=== PATIENT | female | born 1955 | race African-American/Black ===

== ENCOUNTER 2018-12-21 08:19 | Inpatient (IN) | payer MEDICAID ==
[2018-12-21] VITALS (36 sets, daily range): BP systolic 101–193; BP diastolic 47–145
[~2018-12-21] VITALS: Ht 172.7 cm; Wt 84.4 kg
[2018-12-21] MEDS ORDERED: DILTIAZEM HCL 5MG/ML 5ML VIAL IV ONE (09:00)
[2018-12-21] MEDS ORDERED: DILTIAZEM HCL 125 MG in DEXT 5% WATER 100 ML IV ONE (09:00)
[2018-12-21 09:01] LABS: BASOPHILS % 1.2 % (0.0-2.0); EOSINOPHILS % 0.5 % (0.0-5.0); HEMATOCRIT. 38.6 % (36.0-48.0); HEMOGLOBIN. 12.8 g/dL (12.0-16.0); LYMPHOCYTES % 15.2 % (20.0-50.0); MEAN CORPUSCULAR HEMOGLOBIN 30.3 pg (28.0-32.0); MEAN CORPUSCULAR VOLUME 91.4 fL (81.0-99.0); MEAN PLATELET VOLUME 10.7 fl (7.4-10.4); MONOCYTES % 11.1 % (2.0-8.0); PLATELET 195 x1000/uL (130-400); RED BLOOD CELL COUNT 4.22 mill/uL (4.2-5.4); RED CELL DISTRIBUTION WIDTH 14.3 % (11.6-14.6)
[2018-12-21 09:07] LABS: CHLORIDE 98 mEq/L (98-107)
[2018-12-21 09:08] LABS: INR 1.3
[2018-12-21] MEDS ORDERED: ONDANSETRON HCL 4MG/2ML INJ IV PRN (09:45)
[2018-12-21] MEDS ORDERED: ACETAMINOPHEN 325MG TABLET PO PRN (09:45)
[2018-12-21] MEDS ORDERED: DIGOXIN 500MCG/2ML AMP IV NR (10:00)
[2018-12-21] MEDS ORDERED: ONDANSETRON HCL 4MG/2ML INJ IV NR (10:00)
[2018-12-21] MEDS ORDERED: MORPHINE SULFATE 4 MG/ML CPJ (NOT FOR IM USE) IV NR (10:00)
[2018-12-21 10:16] LABS: CLARITY URINE CLEAR (CLEAR); COLOR URINE YELLOW (YELLOW); KETONES URINE NEGATIVE (NEGATIVE); LEUKOCYTE ESTERASE URINE NEGATIVE (NEGATIVE); NITRITE URINE NEGATIVE (NEGATIVE); OCCULT BLOOD URINE NEGATIVE (NEGATIVE); PROTEIN URINE NEGATIVE (NEGATIVE); SPECIFIC GRAVITY URINE 1.014 (1.005-1.030)
[2018-12-21 11:39] LABS: *AMPHETAMINES SCREEN URINE NEGATIVE (NEGATIVE); *BENZODIAZEPINES SCREEN URINE NEGATIVE (NEGATIVE); *COCAINE SCREEN URINE PRESUMTIVE POSITIVE (NEGATIVE); METHADONE URINE SCREEN NEGATIVE (NEGATIVE); OPIATES URINE SCREEN NEGATIVE (NEGATIVE)
[2018-12-21 11:40] LABS: CANNABINOID URINE SCREEN NEGATIVE (NEGATIVE); PHENCYCLIDINE URINE SCREEN NEGATIVE (NEGATIVE)
[2018-12-21 11:42] LABS: *BARBITURATES SCREEN URINE NEGATIVE (NEGATIVE)
[2018-12-21 11:51] LABS: HEPATITIS B SURFACE ANTIGEN NEGATIVE
[2018-12-21] MEDS ORDERED: DILTIAZEM HCL 60MG TABLET PO NR (12:00)
[2018-12-21] MEDS ORDERED: METOPROLOL TARTRATE 5MG/5ML VIAL IV NR (12:00)
[2018-12-21] MEDS ORDERED: ENOXAPARIN 80MG/0.8ML SYR SUBCUT SCH (12:00)
[2018-12-21 12:21] LABS: HEPATITIS A AB IGM NEGATIVE (NEGATIVE)
[2018-12-21] MEDS ORDERED: VANCOMYCIN 1500MG in DEXTROSE 5% WATER 250ML IV NR (14:00)
[2018-12-21] MEDS: CEFTRIAXONE 1 G PREMIX 50 ML IV SCH (14:58)
[2018-12-21] MEDS ORDERED: CARV3.1242 PO (16:50)
[2018-12-21] MEDS ORDERED: FURO-152 PO (16:50)
[2018-12-21] MEDS ORDERED: RIVA10TA PO (16:50)
[2018-12-21] MEDS: DIGOXIN 125MCG TABLET PO SCH (17:38)
[2018-12-21] MEDS: FUROSEMIDE 40MG/4ML VIAL IVP SCH (17:38)
[2018-12-21] MEDS: DILTIAZEM HCL 125 MG in DEXT 5% WATER 100 ML IV PRN (17:39)
[2018-12-21] MEDS ORDERED: CARVEDILOL 3.125 MG TABLET PO SCH (21:00)
[2018-12-21] MEDS ORDERED: HYDROCODONE/ACETAMINOPHEN 5/325MG TABLET PO PRN (23:00)
[2018-12-21] MEDS: HYDROCODONE/ACETAMINOPHEN 5/325MG TABLET PO PRN (23:35)
[2018-12-22] VITALS (47 sets, daily range): BP systolic 77–137; BP diastolic 25–86
[2018-12-22 06:08] LABS: BASOPHILS % 0.2 % (0.0-2.0); EOSINOPHILS % 0.5 % (0.0-5.0); HEMOGLOBIN. 10.7 g/dL (12.0-16.0); LYMPHOCYTES % 10.3 % (20.0-50.0); MEAN CORPUSCULAR HEMOGLOBIN 29.8 pg (28.0-32.0); MEAN CORPUSCULAR VOLUME 91.4 fL (81.0-99.0); MEAN PLATELET VOLUME 10.5 fl (7.4-10.4); MONOCYTES % 9.7 % (2.0-8.0); NEUTROPHILS % 79.3 % (40.0-76.0); PLATELET 143 x1000/uL (130-400); RED BLOOD CELL COUNT 3.61 mill/uL (4.2-5.4); RED CELL DISTRIBUTION WIDTH 14.1 % (11.6-14.6)
[2018-12-22 06:15] LABS: PHOSPHORUS 4.3 mg/dL (2.5-4.9)
[2018-12-22] MEDS: ENOXAPARIN 80MG/0.8ML SYR SUBCUT SCH (08:24)
[2018-12-22] MEDS: FUROSEMIDE 40MG/4ML VIAL IVP SCH ×2 (08:24→17:56)
[2018-12-22] MEDS ORDERED: HYDROCODONE/ACETAMINOPHEN 5/325MG TABLET PO PRN (10:45)
[2018-12-22] MEDS ORDERED: SORBITOL 70% SOLN 30ML PO NR (11:45)
[2018-12-22] MEDS: DILTIAZEM HCL 125 MG in DEXT 5% WATER 100 ML IV PRN (11:50)
[2018-12-22] MEDS: CEFTRIAXONE 1 G PREMIX 50 ML IV SCH (11:51)
[2018-12-22] MEDS: SPIRONOLACTONE 25MG TABLET PO SCH (11:52)
[2018-12-22] MEDS: DILTIAZEM HCL 30MG TABLET PO SCH ×2 (11:53→22:29)
[2018-12-22] MEDS ORDERED: VANCOMYCIN 1 G PREMIX 200 ML IV SCH (12:30)
[2018-12-22] MEDS: HYDROCODONE/ACETAMINOPHEN 5/325MG TABLET PO PRN (12:43)
[2018-12-22] MEDS: DIGOXIN 125MCG TABLET PO SCH (17:56)
[2018-12-23] VITALS (15 sets, daily range): BP systolic 82–122; BP diastolic 52–81
[2018-12-23] MEDS: DILTIAZEM HCL 30MG TABLET PO SCH (05:24)
[2018-12-23] MEDS: FUROSEMIDE 40MG/4ML VIAL IVP SCH ×2 (06:42→17:54)
[2018-12-23 07:00] LABS: BASOPHILS % 0.2 % (0.0-2.0); EOSINOPHILS % 1.7 % (0.0-5.0); HEMATOCRIT. 36.7 % (36.0-48.0); MEAN CORPUSCULAR VOLUME 91.8 fL (81.0-99.0); MEAN PLATELET VOLUME 10.6 fl (7.4-10.4); MONOCYTES % 9.6 % (2.0-8.0); NEUTROPHILS % 78.5 % (40.0-76.0); PLATELET 173 x1000/uL (130-400); RED BLOOD CELL COUNT 3.99 mill/uL (4.2-5.4); RED CELL DISTRIBUTION WIDTH 14.4 % (11.6-14.6)
[2018-12-23 07:28] LABS: PHOSPHORUS 3.9 mg/dL (2.5-4.9)
[2018-12-23] MEDS: SPIRONOLACTONE 25MG TABLET PO SCH (08:51)
[2018-12-23] MEDS: ENOXAPARIN 80MG/0.8ML SYR SUBCUT SCH (08:52)
[2018-12-23] MEDS ORDERED: VANCOMYCIN 750 MG PREMIX 150 ML IV SCH (10:00)
[2018-12-23] MEDS: DILTIAZEM HCL 60MG TABLET PO SCH ×2 (11:23→17:56)
[2018-12-23] MEDS: CEFTRIAXONE 1 G PREMIX 50 ML IV SCH (15:11)
[2018-12-23] MEDS: DIGOXIN 125MCG TABLET PO SCH (17:54)
[2018-12-23] MEDS: LISINOPRIL 5MG TABLET PO SCH (20:39)
[2018-12-24] VITALS (12 sets, daily range): BP systolic 84–124; BP diastolic 55–79
[2018-12-24] MEDS: DILTIAZEM HCL 60MG TABLET PO SCH ×3 (01:11→12:21)
[2018-12-24] MEDS: FUROSEMIDE 40MG/4ML VIAL IVP SCH (06:03)
[2018-12-24 06:47] LABS: BASOPHILS % 0.6 % (0.0-2.0); HEMATOCRIT. 34.2 % (36.0-48.0); HEMOGLOBIN. 11.2 g/dL (12.0-16.0); LYMPHOCYTES % 16.3 % (20.0-50.0); MEAN CORPUSCULAR VOLUME 91.9 fL (81.0-99.0); MEAN PLATELET VOLUME 9.6 fl (7.4-10.4); MONOCYTES % 10.2 % (2.0-8.0); NEUTROPHILS % 68.9 % (40.0-76.0); PLATELET 174 x1000/uL (130-400); RED BLOOD CELL COUNT 3.72 mill/uL (4.2-5.4); RED CELL DISTRIBUTION WIDTH 14.4 % (11.6-14.6)
[2018-12-24 06:55] LABS: PHOSPHORUS 2.9 mg/dL (2.5-4.9)
[2018-12-24 07:13] LABS: DIGOXIN 0.5 ng/mL (0.9-2.0)
[2018-12-24] MEDS: ENOXAPARIN 80MG/0.8ML SYR SUBCUT SCH (09:13)
[2018-12-24] MEDS: LISINOPRIL 5MG TABLET PO SCH (09:14)
[2018-12-24] MEDS: SPIRONOLACTONE 25MG TABLET PO SCH (09:14)
[2018-12-24] MEDS: HYDROCODONE/ACETAMINOPHEN 5/325MG TABLET PO PRN (12:20)
[2018-12-24] MEDS ORDERED: VANCOMYCIN 1 G PREMIX 200 ML IV SCH (12:30)
[2018-12-24] MEDS: CEFTRIAXONE 1 G PREMIX 50 ML IV SCH (14:34)
[2018-12-24] MEDS ORDERED: ENOXAPARIN 80MG/0.8ML SYR SUBCUT SCH (21:00)
== END 2018-12-24 18:15 | disposition home or self-care (01) | DRG 816 ==
LOC: ER 08:40 → ENRESERV 10:32 → CVICU 11:30 → 3WST 12-22 23:10
PROVIDERS: ADMIT Internal Medicine; ATTEND Internal Medicine
DX: T40.5X1A Poisoning by cocaine, accidental (unintentional), initial encounter (principal); J96.90 Respiratory failure, unspecified, unspecified whether with hypoxia or hypercapnia; N17.0 Acute kidney failure with tubular necrosis; I47.2 Ventricular tachycardia; I50.43 Acute on chronic combined systolic (congestive) and diastolic (congestive) heart failure; L03.115 Cellulitis of right lower limb; I31.3 Pericardial effusion (noninflammatory); Y92.89 Other specified places as the place of occurrence of the external cause; I11.0 Hypertensive heart disease with heart failure; N13.1 Hydronephrosis with ureteral stricture, not elsewhere classified; I42.9 Cardiomyopathy, unspecified; I48.91 Unspecified atrial fibrillation; R60.1 Generalized edema; R74.0 Nonspecific elevation of levels of transaminase and lactic acid dehydrogenase [LDH]; F14.129 Cocaine abuse with intoxication, unspecified; I99.8 Other disorder of circulatory system; I25.10 Atherosclerotic heart disease of native coronary artery without angina pectoris; I34.0 Nonrheumatic mitral (valve) insufficiency; J44.9 Chronic obstructive pulmonary disease, unspecified; Z87.891 Personal history of nicotine dependence; Z71.51 Drug abuse counseling and surveillance of drug abuser; Z59.0 Homelessness; Z79.01 Long term (current) use of anticoagulants; Z82.49 Family history of ischemic heart disease and other diseases of the circulatory system
CPT/HCPCS: 36415; 71045; 74176; 76770; 80048; 80061; 80076; 80162; 80202; 80305; 82550; 83735; 83880; 84100; 84439; 84443; 84484; 86705; 86709; 86803; 87340; 93005; 93306; 93923; 93970; 96374; 96375; 99291; J0696; J1160; J1650; J1940; J2270; J2405; J3370; J3490; J7050; J7060; A4315

== ENCOUNTER 2019-01-04 11:27 | Inpatient (IN) | payer MEDICAID ==
[~2019-01-04] VITALS: Ht 165.1 cm; Wt 78.7 kg
[~2019-01-04 11:27] MED LIST: CARV3.1242 PO; FURO-152 PO; RIVA10TA PO
[2019-01-04] MEDS ORDERED: SODIUM CHLORIDE 0.9% 250 ML IV ONE (11:56)
[2019-01-04] MEDS ORDERED: ASPIRIN 81MG TABLET PO ONE (12:00)
[2019-01-04] MEDS ORDERED: KETOROLAC 15MG/ML VIAL IV ONE (12:00)
[2019-01-04 12:26] LABS: BASOPHILS % 0.7 % (0.0-2.0); EOSINOPHILS % 4.2 % (0.0-5.0); HEMATOCRIT. 30.4 % (36.0-48.0); HEMOGLOBIN. 9.8 g/dL (12.0-16.0); LYMPHOCYTES % 11.8 % (20.0-50.0); MEAN CORPUSCULAR HEMOGLOBIN 29.8 pg (28.0-32.0); MEAN CORPUSCULAR VOLUME 92.2 fL (81.0-99.0); MEAN PLATELET VOLUME 9.6 fl (7.4-10.4); MONOCYTES % 9.9 % (2.0-8.0); NEUTROPHILS % 73.4 % (40.0-76.0); PLATELET 277 x1000/uL (130-400); RED CELL DISTRIBUTION WIDTH 14.7 % (11.6-14.6)
[2019-01-04 12:33] LABS: CHLORIDE 107 mEq/L (98-107)
[2019-01-04] MEDS ORDERED: ONDANSETRON HCL 4MG/2ML INJ IV PRN (15:15)
[2019-01-04] MEDS ORDERED: ACETAMINOPHEN 325MG TABLET PO PRN (15:15)
[2019-01-04 16:41] LABS: INR 1.1; PROTHROMBIN TIME 11.7 sec (9.6-11.0)
[2019-01-04] MEDS: FUROSEMIDE 40MG/4ML VIAL IVP SCH (17:20)
[2019-01-04 18:00] VITALS: BP 102/87
[2019-01-04 18:51] VITALS: BP 106/71
[2019-01-04] MEDS: HYDROCODONE/ACETAMINOPHEN 10/325MG TABLET PO PRN (19:58)
[2019-01-04 20:00] VITALS: BP 110/77
[2019-01-04 20:48] LABS: CLARITY URINE CLEAR (CLEAR); COLOR URINE YELLOW (YELLOW); KETONES URINE NEGATIVE (NEGATIVE); LEUKOCYTE ESTERASE URINE NEGATIVE (NEGATIVE); NITRITE URINE NEGATIVE (NEGATIVE); OCCULT BLOOD URINE TRACE (NEGATIVE); PROTEIN URINE NEGATIVE (NEGATIVE); SPECIFIC GRAVITY URINE 1.007 (1.005-1.030); UROBILINOGEN URINE 0.2 E.U./dL (0.2-1.0)
[2019-01-04 20:59] LABS: *AMPHETAMINES SCREEN URINE NEGATIVE (NEGATIVE); *BARBITURATES SCREEN URINE NEGATIVE (NEGATIVE); *BENZODIAZEPINES SCREEN URINE NEGATIVE (NEGATIVE)
[2019-01-04 21:00] LABS: *COCAINE SCREEN URINE PRESUMTIVE POSITIVE (NEGATIVE); CANNABINOID URINE SCREEN NEGATIVE (NEGATIVE); METHADONE URINE SCREEN NEGATIVE (NEGATIVE); OPIATES URINE SCREEN NEGATIVE (NEGATIVE); PHENCYCLIDINE URINE SCREEN NEGATIVE (NEGATIVE)
[2019-01-04 22:00] VITALS: BP 111/59
[2019-01-04 23:01] LABS: BG BASE EXCESS 2.1 mmol/L (-2.0-2.0); BG CARBOXYHEMOGLOBIN 0.5 % (0.5-1.5); BG DEOXYHEMOGLOBIN 14.1 % (0.0-5.0); BG FRACTION INSPIRED OXYGEN 28; BG HCO3 ACT 28.2 mmol/L (22.0-26.0); BG METHEMOGLOBIN 0.1 % (0.0-1.5); BG OXYGEN SATURATION 85.8 % (92.0-98.5); BG OXYHEMOGLOBIN 85.3 % (94.0-97.0); BG PCO2 51.1 mmHg (35.0-45.0); BG PH 7.359 (7.350-7.450); BG PO2 53.1 mmHg (75.0-100.0); BG SAMPLE SITE LEFT RADIAL; BG TOTAL HEMOGLOBIN 10.4 g/dL (12.0-18.0); BG VENT MODE NASAL CANNULA
[2019-01-05] VITALS (14 sets, daily range): BP systolic 92–133; BP diastolic 46–65
[2019-01-05 07:04] LABS: BASOPHILS % 1.3 % (0.0-2.0); EOSINOPHILS % 5.4 % (0.0-5.0); HEMATOCRIT. 27.2 % (36.0-48.0); MEAN CORPUSCULAR HEMOGLOBIN 30.2 pg (28.0-32.0); MEAN CORPUSCULAR VOLUME 91.6 fL (81.0-99.0); MEAN PLATELET VOLUME 9.1 fl (7.4-10.4); MONOCYTES % 12.9 % (2.0-8.0); NEUTROPHILS % 59.4 % (40.0-76.0); PLATELET 272 x1000/uL (130-400); RED BLOOD CELL COUNT 2.97 mill/uL (4.2-5.4); RED CELL DISTRIBUTION WIDTH 15.2 % (11.6-14.6)
[2019-01-05] MEDS: FUROSEMIDE 40MG/4ML VIAL IVP SCH ×2 (08:18→16:18)
[2019-01-05] MEDS: ASPIRIN 81MG TABLET PO SCH (08:18)
[2019-01-05] MEDS ORDERED: DIGOXIN 500MCG/2ML AMP IV NR (11:15)
[2019-01-05] MEDS: DILTIAZEM HCL 30MG TABLET PO SCH ×3 (11:25→21:41)
[2019-01-05] MEDS: ENOXAPARIN 100MG/ML SYR SUBCUT SCH (11:36)
[2019-01-05] MEDS ORDERED: IPRATROPIUM BROMIDE (0.02%) 0.5MG/2.5ML NEB HHN PRN (13:45)
[2019-01-05] MEDS: IPRATROPIUM BROMIDE (0.02%) 0.5MG/2.5ML NEB HHN SCH ×2 (15:17→21:00)
[2019-01-05] MEDS: HYDROCODONE/ACETAMINOPHEN 10/325MG TABLET PO PRN ×2 (17:20→21:42)
[2019-01-05] MEDS ORDERED: DIGOXIN 500MCG/2ML AMP IV SCH (18:00)
[2019-01-05] MEDS ORDERED: ENOXAPARIN 80MG/0.8ML SYR SUBCUT SCH (18:30)
[2019-01-05] MEDS: BUDESONIDE 0.5MG/2ML NEB HHN SCH (21:00)
[2019-01-06] VITALS (12 sets, daily range): BP systolic 105–150; BP diastolic 44–88
[2019-01-06] MEDS: IPRATROPIUM BROMIDE (0.02%) 0.5MG/2.5ML NEB HHN SCH ×7 (00:33→21:58)
[2019-01-06] MEDS: FUROSEMIDE 40MG/4ML VIAL IVP SCH ×2 (05:51→16:56)
[2019-01-06] MEDS: DILTIAZEM HCL 30MG TABLET PO SCH (05:55)
[2019-01-06 06:36] LABS: BASOPHILS % 1.4 % (0.0-2.0); EOSINOPHILS % 6.7 % (0.0-5.0); HEMATOCRIT. 29.2 % (36.0-48.0); HEMOGLOBIN. 9.5 g/dL (12.0-16.0); LYMPHOCYTES % 20.7 % (20.0-50.0); MEAN CORPUSCULAR HEMOGLOBIN 29.8 pg (28.0-32.0); MEAN CORPUSCULAR VOLUME 91.9 fL (81.0-99.0); MEAN PLATELET VOLUME 8.9 fl (7.4-10.4); MONOCYTES % 12.6 % (2.0-8.0); NEUTROPHILS % 58.6 % (40.0-76.0); PLATELET 311 x1000/uL (130-400); RED BLOOD CELL COUNT 3.18 mill/uL (4.2-5.4); RED CELL DISTRIBUTION WIDTH 15.2 % (11.6-14.6)
[2019-01-06] MEDS: LISINOPRIL 2.5MG TABLET PO SCH (08:09)
[2019-01-06] MEDS: ASPIRIN 81MG TABLET PO SCH (08:09)
[2019-01-06] MEDS: BUDESONIDE 0.5MG/2ML NEB HHN SCH ×2 (09:04→21:59)
[2019-01-06] MEDS: DIPHENHYDRAMINE 25MG CAPSULE PO PRN (10:56)
[2019-01-06] MEDS: ENOXAPARIN 100MG/ML SYR SUBCUT SCH ×2 (10:56→20:33)
[2019-01-06] MEDS: DILTIAZEM HCL 60MG TABLET PO SCH ×3 (10:57→23:50)
[2019-01-06] MEDS: HYDROCODONE/ACETAMINOPHEN 10/325MG TABLET PO PRN (15:09)
[2019-01-07] VITALS (12 sets, daily range): BP systolic 106–142; BP diastolic 24–99
[2019-01-07] MEDS: IPRATROPIUM BROMIDE (0.02%) 0.5MG/2.5ML NEB HHN SCH ×5 (00:52→16:28)
[2019-01-07 06:18] LABS: BASOPHILS % 1.4 % (0.0-2.0); EOSINOPHILS % 6.7 % (0.0-5.0); HEMATOCRIT. 28.7 % (36.0-48.0); HEMOGLOBIN. 9.4 g/dL (12.0-16.0); LYMPHOCYTES % 20.5 % (20.0-50.0); MEAN CORPUSCULAR HEMOGLOBIN 29.8 pg (28.0-32.0); MEAN CORPUSCULAR VOLUME 90.9 fL (81.0-99.0); MEAN PLATELET VOLUME 8.8 fl (7.4-10.4); NEUTROPHILS % 57.4 % (40.0-76.0); PLATELET 361 x1000/uL (130-400); RED BLOOD CELL COUNT 3.15 mill/uL (4.2-5.4); RED CELL DISTRIBUTION WIDTH 15.1 % (11.6-14.6)
[2019-01-07] MEDS: DILTIAZEM HCL 60MG TABLET PO SCH ×4 (06:53→23:17)
[2019-01-07] MEDS: FUROSEMIDE 40MG/4ML VIAL IVP SCH ×2 (06:53→17:22)
[2019-01-07] MEDS: BUDESONIDE 0.5MG/2ML NEB HHN SCH ×2 (08:48→20:45)
[2019-01-07] MEDS: DIPHENHYDRAMINE 25MG CAPSULE PO PRN (08:55)
[2019-01-07] MEDS: LISINOPRIL 2.5MG TABLET PO SCH (08:56)
[2019-01-07] MEDS: ENOXAPARIN 100MG/ML SYR SUBCUT SCH ×2 (08:56→20:34)
[2019-01-07] MEDS: ASPIRIN 81MG TABLET PO SCH (08:56)
[2019-01-08] VITALS (14 sets, daily range): BP systolic 109–131; BP diastolic 54–78
[2019-01-08] MEDS: HYDROCODONE/ACETAMINOPHEN 10/325MG TABLET PO PRN (01:44)
[2019-01-08] MEDS: DILTIAZEM HCL 60MG TABLET PO SCH ×4 (06:00→23:25)
[2019-01-08 06:29] LABS: HEMATOCRIT 29.1 % (36.0-48.0); HEMOGLOBIN 9.5 g/dL (12.0-16.0); MEAN CORPUSCULAR HEMOGLOBIN 29.4 pg (28.0-32.0); MEAN CORPUSCULAR VOLUME 89.9 fL (81.0-99.0); PLATELET 378 x1000/uL (130-400); RED BLOOD CELL COUNT 3.23 mill/uL (4.2-5.4); RED CELL DISTRIBUTION WIDTH 14.5 % (11.6-14.6)
[2019-01-08 06:36] LABS: CHLORIDE 102 mEq/L (98-107)
[2019-01-08] MEDS: FUROSEMIDE 40MG/4ML VIAL IVP SCH ×2 (06:38→16:29)
[2019-01-08] MEDS: BUDESONIDE 0.5MG/2ML NEB HHN SCH (08:25)
[2019-01-08] MEDS: IPRATROPIUM BROMIDE (0.02%) 0.5MG/2.5ML NEB HHN SCH ×5 (08:25→20:32)
[2019-01-08] MEDS: ASPIRIN 81MG TABLET PO SCH (08:30)
[2019-01-08] MEDS: ENOXAPARIN 100MG/ML SYR SUBCUT SCH ×2 (08:30→20:25)
[2019-01-08] MEDS: LISINOPRIL 2.5MG TABLET PO SCH (08:31)
[2019-01-08] MEDS ORDERED: GUAIFENESIN/CODEINE 100-10MG/5ML UDC PO PRN (10:15)
[2019-01-08] MEDS: DIPHENHYDRAMINE 25MG CAPSULE PO PRN (11:29)
[2019-01-08] MEDS ORDERED: GUAIFENESIN-DM 200MG-20MG/10ML UDC PO PRN (11:45)
[2019-01-08] MEDS ORDERED: THROAT LOZENGES-BENZOCAINE/MENTH/CETYLPYRD CL LOZENGES MM PRN (11:45)
[2019-01-09] VITALS (10 sets, daily range): BP systolic 99–121; BP diastolic 49–80
[2019-01-09] MEDS: HYDROCODONE/ACETAMINOPHEN 10/325MG TABLET PO PRN (00:20)
[2019-01-09] MEDS: IPRATROPIUM BROMIDE (0.02%) 0.5MG/2.5ML NEB HHN SCH ×6 (01:02→20:33)
[2019-01-09] MEDS: DILTIAZEM HCL 60MG TABLET PO SCH ×3 (06:26→18:45)
[2019-01-09] MEDS: DIPHENHYDRAMINE 25MG CAPSULE PO PRN (06:28)
[2019-01-09 06:37] LABS: HEMATOCRIT 29.1 % (36.0-48.0); HEMOGLOBIN 9.7 g/dL (12.0-16.0); MEAN CORPUSCULAR HEMOGLOBIN 29.8 pg (28.0-32.0); MEAN CORPUSCULAR VOLUME 89.7 fL (81.0-99.0); PLATELET 386 x1000/uL (130-400); RED BLOOD CELL COUNT 3.24 mill/uL (4.2-5.4)
[2019-01-09 07:10] LABS: CHLORIDE 99 mEq/L (98-107)
[2019-01-09] MEDS: FUROSEMIDE 40MG/4ML VIAL IVP SCH ×2 (08:21→18:45)
[2019-01-09] MEDS: ENOXAPARIN 100MG/ML SYR SUBCUT SCH (08:21)
[2019-01-09] MEDS: LISINOPRIL 2.5MG TABLET PO SCH (08:22)
[2019-01-09] MEDS: ASPIRIN 81MG TABLET PO SCH (08:22)
[2019-01-09] MEDS ORDERED: DIGOXIN 500MCG/2ML AMP IV NR (14:30)
[2019-01-09] MEDS: RIVAROXABAN 20 MG TABLET PO SCH (18:45)
[2019-01-10] VITALS: BP 115/70
[2019-01-10] MEDS: DILTIAZEM HCL 60MG TABLET PO SCH ×3 (00:10→12:53)
[2019-01-10] MEDS: DIPHENHYDRAMINE 25MG CAPSULE PO PRN (00:10)
[2019-01-10] MEDS: IPRATROPIUM BROMIDE (0.02%) 0.5MG/2.5ML NEB HHN SCH ×6 (00:44→19:47)
[2019-01-10 04:00] VITALS: BP 111/72
[2019-01-10] MEDS: FUROSEMIDE 40MG/4ML VIAL IVP SCH ×2 (06:28→16:46)
[2019-01-10 06:46] LABS: BASOPHILS % 1.4 % (0.0-2.0); EOSINOPHILS % 6.6 % (0.0-5.0); HEMATOCRIT. 28.5 % (36.0-48.0); HEMOGLOBIN. 9.5 g/dL (12.0-16.0); LYMPHOCYTES % 33.2 % (20.0-50.0); MEAN CORPUSCULAR HEMOGLOBIN 29.7 pg (28.0-32.0); MEAN CORPUSCULAR VOLUME 89.1 fL (81.0-99.0); MEAN PLATELET VOLUME 8.6 fl (7.4-10.4); NEUTROPHILS % 47.8 % (40.0-76.0); PLATELET 386 x1000/uL (130-400); RED CELL DISTRIBUTION WIDTH 14.9 % (11.6-14.6)
[2019-01-10 07:15] LABS: CHLORIDE 100 mEq/L (98-107)
[2019-01-10 08:00] VITALS: BP 98/73
[2019-01-10] MEDS: ASPIRIN 81MG TABLET PO SCH (09:34)
[2019-01-10] MEDS: LISINOPRIL 2.5MG TABLET PO SCH (09:34)
[2019-01-10 12:00] VITALS: BP 100/79
[2019-01-10] MEDS: MAGNESIUM OXIDE 400MG TABLET PO SCH (12:52)
[2019-01-10] MEDS ORDERED: MAGNESIUM 1 G PREMIX 100 ML IV NR (14:00)
[2019-01-10 16:00] VITALS: BP 94/72
[2019-01-10] MEDS: RIVAROXABAN 20 MG TABLET PO SCH (16:45)
[2019-01-10] MEDS: DILTIAZEM HCL 90MG TABLET PO SCH (17:53)
[2019-01-10] MEDS ORDERED: DIGOXIN 500MCG/2ML AMP IV SCH (18:00)
[2019-01-10 20:00] VITALS: BP 136/98
[2019-01-11] VITALS: BP 99/62
[2019-01-11] MEDS: IPRATROPIUM BROMIDE (0.02%) 0.5MG/2.5ML NEB HHN SCH ×5 (00:56→21:13)
[2019-01-11] MEDS: DIPHENHYDRAMINE 25MG CAPSULE PO PRN ×2 (01:25→23:48)
[2019-01-11 04:00] VITALS: BP 116/80
[2019-01-11] MEDS: FUROSEMIDE 40MG/4ML VIAL IVP SCH (05:42)
[2019-01-11] MEDS: DILTIAZEM HCL 90MG TABLET PO SCH ×5 (05:51→23:48)
[2019-01-11 06:39] LABS: CHLORIDE 101 mEq/L (98-107)
[2019-01-11 06:47] LABS: BASOPHILS % 1.4 % (0.0-2.0); EOSINOPHILS % 5.7 % (0.0-5.0); HEMATOCRIT. 28.9 % (36.0-48.0); HEMOGLOBIN. 9.5 g/dL (12.0-16.0); LYMPHOCYTES % 27.9 % (20.0-50.0); MEAN CORPUSCULAR HEMOGLOBIN 29.4 pg (28.0-32.0); MEAN CORPUSCULAR VOLUME 89.7 fL (81.0-99.0); MEAN PLATELET VOLUME 8.8 fl (7.4-10.4); MONOCYTES % 14.1 % (2.0-8.0); NEUTROPHILS % 50.9 % (40.0-76.0); PLATELET 377 x1000/uL (130-400); RED BLOOD CELL COUNT 3.22 mill/uL (4.2-5.4)
[2019-01-11 08:00] VITALS: BP 117/80
[2019-01-11] MEDS: LISINOPRIL 2.5MG TABLET PO SCH (09:00)
[2019-01-11] MEDS: ASPIRIN 81MG TABLET PO SCH (09:51)
[2019-01-11] MEDS: SPIRONOLACTONE 25MG TABLET PO SCH (09:51)
[2019-01-11] MEDS: MAGNESIUM OXIDE 400MG TABLET PO SCH (09:51)
[2019-01-11] MEDS: FUROSEMIDE 40MG TABLET PO SCH ×2 (09:58→19:13)
[2019-01-11 12:00] VITALS: BP 117/79
[2019-01-11] MEDS ORDERED: CARVEDILOL 3.125 MG TABLET PO SCH (13:30)
[2019-01-11] MEDS: DIGOXIN 500MCG/2ML AMP IV SCH ×3 (15:05→19:13)
[2019-01-11] MEDS: RIVAROXABAN 20 MG TABLET PO SCH (17:12)
[2019-01-11] MEDS ORDERED: DIGOXIN 250MCG TABLET PO SCH (18:00)
[2019-01-11 20:00] VITALS: BP 113/64
[2019-01-11] MEDS ORDERED: DIGOXIN 500MCG/2ML AMP IV SCH (22:00)
[2019-01-12] VITALS: BP 107/73
[2019-01-12] MEDS: IPRATROPIUM BROMIDE (0.02%) 0.5MG/2.5ML NEB HHN SCH ×4 (00:45→12:51)
[2019-01-12 04:00] VITALS: BP 121/76
[2019-01-12 06:11] LABS: CHLORIDE 102 mEq/L (98-107)
[2019-01-12] MEDS: DILTIAZEM HCL 90MG TABLET PO SCH (06:18)
[2019-01-12] MEDS: FUROSEMIDE 40MG TABLET PO SCH (06:18)
[2019-01-12 06:38] LABS: BASOPHILS % 1.3 % (0.0-2.0); EOSINOPHILS % 5.3 % (0.0-5.0); HEMATOCRIT. 30.9 % (36.0-48.0); HEMOGLOBIN. 10.1 g/dL (12.0-16.0); LYMPHOCYTES % 28.1 % (20.0-50.0); MEAN CORPUSCULAR HEMOGLOBIN 29.5 pg (28.0-32.0); MEAN CORPUSCULAR VOLUME 89.6 fL (81.0-99.0); MEAN PLATELET VOLUME 8.9 fl (7.4-10.4); MONOCYTES % 12.6 % (2.0-8.0); NEUTROPHILS % 52.7 % (40.0-76.0); PLATELET 375 x1000/uL (130-400); RED BLOOD CELL COUNT 3.44 mill/uL (4.2-5.4); RED CELL DISTRIBUTION WIDTH 14.6 % (11.6-14.6)
[2019-01-12 08:00] VITALS: BP 110/47
[2019-01-12] MEDS: MAGNESIUM OXIDE 400MG TABLET PO SCH (10:12)
[2019-01-12] MEDS: LISINOPRIL 2.5MG TABLET PO SCH (10:12)
[2019-01-12] MEDS: ASPIRIN 81MG TABLET PO SCH (10:12)
[2019-01-12] MEDS: SPIRONOLACTONE 25MG TABLET PO SCH (10:12)
[2019-01-12 14:03] VITALS: BP 124/88
[2019-01-12] MEDS ORDERED: DIGOXIN 125MCG TABLET PO SCH (18:00)
== END 2019-01-12 14:32 | disposition home or self-care (01) | DRG 194 ==
LOC: ER 13:28 → 3WST 14:58 → EDBEDREQ 15:05 → ENRESERV 15:49 → 6WST 01-09 11:58
PROVIDERS: ADMIT Internal Medicine; ATTEND Internal Medicine
DX: I50.23 Acute on chronic systolic (congestive) heart failure (principal); J96.20 Acute and chronic respiratory failure, unspecified whether with hypoxia or hypercapnia; N17.9 Acute kidney failure, unspecified; I31.3 Pericardial effusion (noninflammatory); E44.0 Moderate protein-calorie malnutrition; N18.6 End stage renal disease; I48.91 Unspecified atrial fibrillation
CPT/HCPCS: 36415; 36600; 71045; 80048; 80305; 82375; 82805; 83735; 83880; 84484; 85027; 93005; 93970; 94640; 96365; 96375; 97116; 97162; 99291; J1160; J1650; J1885; J1940; J3475; J7050; J7626; Q0163